=== PATIENT | female | born 1990 | race Caucasian/White ===

== ENCOUNTER 2024-12-26 16:07 | Emergency (ER) | payer SELFPAY ==
[2024-12-26 16:12] VITALS: BP 167/124
[2024-12-26 16:35] LABS: Urine Character Clear (Clear)
[2024-12-26 16:36] LABS: Hematocrit 42.9 % (37.0-47.0); Hemoglobin 14.3 g/dL (12.0-16.0); Mean Corp Hgb Conc. 33.3 g/dL (33.0-37.0); Mean Corpuscular Volume 92.5 fL (81.0-99.0); Nucleated Red Blood Cells % 0 %; Platelet Count 228 10^3/uL (130-400); Red Cell Dist. Width 12.7 % (11.5-14.5)
[2024-12-26 16:51] LABS: HCG, Serum Qualitative Screen Negative
[2024-12-26 16:56] LABS: ALT (SGPT) 20 U/L (0-35); AST (SGOT) 25 U/L (14-36); Albumin 4.9 g/dl (3.5-5.0); Alkaline Phosphatase 129 U/L (38-126); Blood Urea Nitrogen 13 mg/dl (7-17); Calcium 9.3 mg/dl (8.4-10.2); Carbon Dioxide 27 mmol/L (22-30); Chloride 103 mmol/L (98-107); Glucose 94 mg/dl (70-99); Potassium 4.5 mmol/L (3.5-5.1); Sodium 138 mmol/L (135-145); Total Protein 7.5 g/dl (6.3-8.2); eGFR > 60.00
[2024-12-26 17:13] LABS: Urine Squamous Cell 16-20 /LPF (Few)
[2024-12-26 17:14] LABS: Urine Red Blood Cell 0-2 /HPF (0-2); Urine White Cell 0-2 /HPF (0-5)
--- NOTE | 2024-12-26 20:45 | ED.GENMED ---
History of Present Illness
General
Chief Complaint: Flank Pain
Time Seen by Provider: 12/26/24 20:44
Nursing documentation reviewed up to this point in time: agreed with
History of Present Illness
History of Present Illness:
34-year-old female presents to the ER for further evaluation of left-sided flank pain. Patient has experienced 2 prior episodes of pyelonephritis this year. During treatment for these she discovered that she is allergic to likely nitrofurantoin
which was the first antibiotic prescribed. She was able to tolerate Cipro. She states that she has been feeling well up until yesterday when she started developing left-sided flank pain radiating to her abdomen. She also reports mild nausea. No
fevers. No dysuria. No hematuria. Patient has only recently sought evaluation by primary care physician, has appointment scheduled for next week. She has never seen urology for the symptoms. She did not have any prior imaging for the symptoms.
She took 600 mg of ibuprofen this morning with improvement in her pain. No recent antibiotic usage. She was seen at urgent care, however referred to the ER as she has been having negative urine samples.
Review of Systems
Review of Systems
Allergies reviewed?: Yes
Phy Exam
Physical Exam
Physical Exam:
Patient is awake, alert, appears in no acute distress, head is normocephalic atraumatic, mucous memories moist, conjunctiva pink, heart regular rate and rhythm without murmurs or ectopy, lungs are clear to auscultation without wheezes rales or
rhonchi, abdomen is soft without focal tenderness, no overlying skin changes, extremities without edema, 2+ DP pulses present symmetric, GCS is 15
Course
Orders/Labs/Results
Orders:
Orders
12/26/24 16:17
Test Result ONCE
12/26/24 16:27
Complete Blood Count/With Diff Urgent
Comprehensive Metabolic Panel Urgent
HCG, Serum Qualitative Screen Urgent
Comment: Notify provider if positive test present
Urinalysis Reflex To Culture Urgent
Date Specimen was Collected: 12/26/24
Time Specimen was Collected: 16:17
Urine Microscopic Reflex Cult Urgent
Urine Culture Urgent
DAYANA Source: U
Specimen Description:
Date Specimen was Collected: 12/26/24
Time Specimen was Collected: 16:17
12/26/24 17:59
CT Abd/pel Without Iv Or Oral Urgent
Comment:
Reason For Exam: left flank pain
12/26/24 20:57
Urine Culture Urgent
DAYANA Source: Urine
Specimen Description:
Abnormal Lab Results
12/26/24
16:27
MPV 11.4 H fL
(7.4-10.4)
Alkaline Phosphatase 129 H U/L
(38-126)
Leukocyte Esterase Rfl 1+ A
(Negative)
Urine Bacteria (Reflex) Few A
(Negative)
12/26/24 16:27
12/26/24 16:27
Labs are very reassuring with normal white blood count, normal kidney function, normal electrolytes. Urinalysis does not show evidence for acute infection
Vital Signs
Initial and Last Documented VS:
Initial Vital Signs
Temp Pulse Resp BP Pulse Ox
98.4 F 89 18 167/124 98
12/26/24 16:12 12/26/24 16:12 12/26/24 16:12 12/26/24 16:12 12/26/24 16:12
Last Documented Vital Signs
Temp Pulse Resp BP Pulse Ox
98.4 F 89 18 167/124 98
12/26/24 16:12 12/26/24 16:12 12/26/24 16:12 12/26/24 16:12 12/26/24 20:46
MDM/Problems Addressed
Differential Diagnosis Includes:
Differential diagnosis to consider but not limited to pyelonephritis, renal colic, renal mass along with other etiologies considered
Chronic conditions affecting care:
Prior urinary tract infection/pyelonephritis
*Radiology
Radiology exam reviewed: radiology read reviewed (IMPRESSION: Numerous tiny/small nonobstructing bilateral renal calculi. No findings to suggest ureteral calculus, urinary tract dilatation or perinephric stranding bilaterally. Approximate 0.6 cm
slightly high attenuation left renal lesion, indeterminate on this study without intravenous contrast,)
*Pulse Oximetry
SaO2: 98
Oxygen Mode of Delivery: Room air
Patient hypoxic: no
*Critical Care Note
Total Time (30-74mins, 75-104mins- exclusive of procedures): Not Applicable
Update Note
Update Note:
Patient resting comfortably in no acute distress while awaiting test results. I discussed with patient very reassuring workup in the emergency department based on labs and urinalysis. I discussed with her CT findings including presence of
nonspecific nodule in her left kidney. Given she is having persistent pain, will refer to urology for further evaluation. I discussed with her continued use of NSAIDs and strict return precautions. I discussed with her use of as needed Pyridium
if she is having dysuria. I advised her to continue to keep her appointment with primary care physician next week for reevaluation of her symptoms and for urine culture results. Patient expressed understanding of full discharge instructions and
had no questions prior to leaving the department.
ED Attending Note
-
Portions of this chart may have been created with voice recognition software.� Occasional wrong word or��sound alike� substitutions may have occurred due to the inherent limitations of voice recognition software.
Discharge Plan
Departure
Patient Disposition: Home (Routine Discharge)
Date of Disposition: 12/26/24
Time of Disposition: 20:58
Patient with high blood pressure during this ER visit?: Yes
Discharge Problem:
Acute flank pain, Nodule of kidney
Instructions: Flank Pain (DC), BLOOD PRESSURE
Prescriptions:
New
phenazopyridine [Pyridium] 200 mg tablet
200 mg PO TID PRN (Reason: Pain) Qty: 6 0RF
Referrals:
Curtis Quintero MD [Active, Urology]
Discharge Problem: Nodule of kidney; Acute flank pain
Activity Restrictions/Additional Instructions:
Encourage fluids. Continue using [id number] ibuprofen as needed for discomfort. Please follow-up with primary care physician next week as scheduled. Return to the ER for any concerns including but not limited to fevers, chills, uncontrolled
pain, inability to eat or drink. Use Pyridium as prescribed if you develop dysuria. Your urine has been sent for culture, if you receive a phone call from the hospital please return call as we will need to prescribe an antibiotic for you.
Interventions
Interventions:
*Risk Screen - Suicide Last Done: 12/26/24 20:19
*General Assessment Last Done: 12/26/24 20:19
*Neglect/Abuse Screening Last Done: 12/26/24 20:19
*ED- Fall Risk Assessment Last Done: 12/26/24 20:19
*ED COVID-19 Vaccine History Last Done: 12/26/24 20:19
HH-Yqrzaa-Mudsminrcy Assessment Last Done: 12/26/24 20:19
ED-Female Genitourinary Assessment Last Done: 12/26/24 20:19
Discharge Date and Time
Print Language: ESTONIAN
== END 2024-12-26 21:21 | disposition home or self-care (01) ==
LOC: EMR 16:07
PROVIDERS: Student in an Organized Health Care Education/Training Program; EMERGENCY PHYSICIAN Emergency Medicine
DX: N28.89 Other specified disorders of kidney and ureter (principal); N20.0 Calculus of kidney
CPT/HCPCS: 99284; 74176; 80053; 81003; 81015; 84703; 85025; 87086